=== PATIENT | female | born 2000 | race Caucasian/White ===

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

== ENCOUNTER 2020-12-06 04:34 | Outpatient (CLI) | payer MEDICAID, SELFPAY ==
[2020-12-06 13:19] LABS: Anion Gap 7.4 mmol/L (3-11); BUN 11 mg/dL (7-18); CO2 26.6 mmol/L (21.0-32.0); CREATININE 0.7 mg/dL (0.55-1.02); Calcium 9.7 mg/dL (8.5-10.1); Calculated LDL 116 mg/dL (<100); Chloride 106 mmol/L (98-107); Cholesterol 202 mg/dL (<200); Glucose 79 mg/dL (74-106); HDL Cholesterol 74 mg/dL (40-60); Potassium 4.1 mmol/L (3.5-5.1); Sodium 140 mmol/L (136-145); Triglyceride 63 mg/dL (<150)
== END 2020-12-06 04:35 | disposition home or self-care (01) ==
LOC: LBO 04:34
PROVIDERS: PCP Nurse Practitioner Family; Visit Provider Nurse Practitioner Family
DX: Z13.220 Encounter for screening for lipoid disorders (principal); Z00.00 Encounter for general adult medical examination without abnormal findings
CPT/HCPCS: 36415; 80048; 80061

== ENCOUNTER 2023-03-10 15:39 | Outpatient (REF) | payer MEDICAID, SELFPAY ==
[2023-03-12 15:36] LABS: Chlamydia Result Negative (Negative); GC Result Negative (Negative)
== END 2023-03-10 15:40 | disposition home or self-care (01) ==
LOC: LBN 15:39
PROVIDERS: PCP Nurse Practitioner Family; Visit Provider Nurse Practitioner Women's Health
DX: Z11.3 Encounter for screening for infections with a predominantly sexual mode of transmission (principal)
CPT/HCPCS: 87491; 87591

== ENCOUNTER 2023-03-14 00:26 | Outpatient (CLI) | payer MEDICAID, SELFPAY ==
--- NOTE | 2023-03-14 07:45 | DI.MRI_ITS ---
Exam(s) MR LOWER JOINT LT WO EXAM: MR LOWER JOINT LT WO CLINICAL HISTORY: left knee pain, concern for ACL/meniscus tear,M25.562. TECHNIQUE: Multiplanar multisequence MRI was performed. COMPARISON: CR LEFT KNEE 3 VIEW COMPLETE from 04/06/2013 FINDINGS: BONES: There is no fracture or contusion pattern. JOINTS: Articular cartilage is unremarkable. No effusion is present. TENDONS: Extensor mechanism: Unremarkable. Medial retinaculum: Unremarkable. Lateral retinaculum: Unremarkable. Popliteus: Unremarkable. MUSCLES: Unremarkable. MENISCI: The medial meniscus is unremarkable. The lateral meniscus is unremarkable. SOFT TISSUES: Unremarkable. LIGAMENTS: Anterior Cruciate: Unremarkable. Posterior Cruciate: Unremarkable. Medial Collateral:Unremarkable. Lateral Collateral: Unremarkable. OTHER: IMPRESSION: 1. No evidence of a meniscal or ligament tear. 2. No acute abnormality. DATA REPOSITORY:
== END 2023-03-14 00:46 ==
LOC: DI 00:26
PROVIDERS: PCP Nurse Practitioner Family; Visit Provider Nurse Practitioner Family
DX: M25.562 Pain in left knee (principal)
CPT/HCPCS: 73721

== ENCOUNTER 2023-03-24 01:29 | Outpatient (CLI) | payer MEDICAID, SELFPAY ==
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
== END 2023-03-24 01:49 ==
LOC: DI 01:30
PROVIDERS: PCP Nurse Practitioner Family; Visit Provider Nurse Practitioner Women's Health
DX: N94.10 Unspecified dyspareunia (principal); N85.8 Other specified noninflammatory disorders of uterus
CPT/HCPCS: 76830; 76856

== ENCOUNTER 2023-04-28 04:54 | Outpatient (CLI) | payer MEDICAID, SELFPAY ==
[2023-04-28 16:46] LABS: Abs Immature Grans 0.02 10^3/uL (0.0-0.06); Absolute Basophil Count 0.04 10^3/uL (0.0-0.2); Absolute Eosinophil Count 0.17 10^3/uL (0.0-0.7); Absolute Lymphocyte Count 2.73 10^3/uL (1.2-3.4); Absolute Monocyte Count 0.64 10^3/uL (0.1-0.8); Absolute Neutrophil Count 4.64 10^3/uL (1.2-6.7); Basophils % 0.5; Eosinophils % 2.1; HCT 40.1 % (36.0-46.0); HGB 13.2 g/dL (11.2-15.7); Immature Grans % 0.2; Lymphocytes % 33.1; MCH 26.6 pg (27.0-33.0); MCHC 32.9 % (32.0-36.0); MCV 81 fL (80-95); MPV 10.2 fL (8.0-11.0); Monocytes % 7.8; Neutrophils % 56.3; Platelet Count 337 10^3/uL (130-400); RBC 4.96 10^6/uL (3.93-5.22); RDW 13.2 % (11.7-14.6); RDW-SD 38.7 fL; WBC 8.24 10^3/uL (4.4-10.8)
[2023-04-28 17:48] LABS: Hemoglobin A1C 5.2 % (<5.7)
[2023-04-28 18:01] LABS: ALT 44 U/L (14-59); AST 19 U/L (15-37); Albumin 3.8 g/dL (3.4-5.0); Alkaline Phosphatase 133 U/L (46-116); Anion Gap 10.9 mmol/L (3-11); BUN 9 mg/dL (7-18); Bilirubin, Total 0.2 mg/dL (0.2-1.0); CO2 26.1 mmol/L (21.0-32.0); CREATININE 0.8 mg/dL (0.55-1.02); Calcium 9.2 mg/dL (8.5-10.1); Calculated LDL 116 mg/dL (<100); Chloride 103 mmol/L (98-107); Cholesterol 207 mg/dL (<200); Estimated GFR 106.77 (mL/min/1.73m2); Glucose 95 mg/dL (74-106); HDL Cholesterol 62 mg/dL (40-60); Sodium 140 mmol/L (136-145); TSH (W/Ref FT4) 1.37 uIU/mL (0.36-3.74); Total Protein 7.6 g/dL (6.4-8.2); Triglyceride 148 mg/dL (<150)
== END 2023-04-28 04:55 | disposition home or self-care (01) ==
PROVIDERS: PCP Nurse Practitioner Family; Visit Provider Nurse Practitioner Family
DX: E78.5 Hyperlipidemia, unspecified (principal); R79.89 Other specified abnormal findings of blood chemistry; N94.19 Other specified dyspareunia; E66.01 Morbid (severe) obesity due to excess calories; Z00.00 Encounter for general adult medical examination without abnormal findings
CPT/HCPCS: 36415; 80053; 80061; 83036; 84443; 85025

== ENCOUNTER 2023-05-13 20:24 | Outpatient (REF) | payer MEDICAID, SELFPAY ==
[2023-05-19 14:12] LABS: Helicobacter pylori Ag, Feces Negative (Negative)
== END 2023-05-13 20:25 | disposition home or self-care (01) ==
LOC: LBN 20:24
PROVIDERS: PCP Nurse Practitioner Family; Visit Provider Nurse Practitioner Family
DX: E66.01 Morbid (severe) obesity due to excess calories (principal); Z68.42 Body mass index [BMI] 45.0-49.9, adult
CPT/HCPCS: 87338

== ENCOUNTER → 2023-08-05 01:03 | Outpatient (CLI) | payer MEDICAID, SELFPAY ==
--- NOTE | 2023-08-05 07:00 | DI.MRI_ITS ---
Exam(s) MR BRAIN WO EXAM: MR BRAIN WO CLINICAL HISTORY: chronic headache, optic nerve concern per eye doctor, R51.9, G89.29 TECHNIQUE: Multiplanar multisequence MRI of the brain was performed. CT CT BRAIN NECK CTA from 08/12/2019 FINDINGS: VENTRICLES AND EXTRA AXIAL SPACES: Normal in size and morphology for the patient's age. MIDLINE SHIFT: None. CEREBRAL PARENCHYMA: No focus of restricted diffusion to suggest acute infarct. No space-occupying le radha identified. HEMORRHAGE: None. BRAINSTEM/CEREBELLUM: Normal. CALVARIUM: Normal. VISUALIZED PARANASAL SINUSES/MASTOIDS:Clear. NOME OF DIAMOND: Normal flow void. PITUITARY GLAND: Unremarkable. OTHER FINDINGS: None. IMPRESSION: Unremarkable MRI of the brain. DATA REPOSITORY:
== END ==
PROVIDERS: PCP Nurse Practitioner Family; Visit Provider Nurse Practitioner Family
DX: G89.29 Other chronic pain (principal); R51.9 Headache, unspecified
CPT/HCPCS: 70551

== ENCOUNTER 2023-12-16 15:45 | Outpatient (REF) | payer MEDICAID, SELFPAY ==
[2023-12-18 14:54] LABS: Chlamydia Result Negative (Negative); GC Result Negative (Negative)
== END 2023-12-16 15:46 | disposition home or self-care (01) ==
LOC: LBN 15:45
PROVIDERS: PCP Nurse Practitioner Family; Visit Provider Advanced Practice Midwife
DX: N89.8 Other specified noninflammatory disorders of vagina (principal); Z11.3 Encounter for screening for infections with a predominantly sexual mode of transmission
CPT/HCPCS: 87491; 87591; 87480; 87510; 87660

== ENCOUNTER 2023-12-24 05:07 | Outpatient (CLI) | payer MEDICAID, SELFPAY ==
[2023-12-24 18:24] LABS: Hepatitis B Surface Ag Negative (Negative)
[2023-12-24 18:53] LABS: Hepatitis C Ab w Rflx HCV PCR Negative (Negative)
[2023-12-24 18:54] LABS: HIV-1/2 Ag & Ab Screen Negative (Negative)
[2023-12-26 19:19] LABS: Syphilis IgG w/Reflex Nonreactive (Nonreactive)
== END 2023-12-24 05:08 | disposition home or self-care (01) ==
PROVIDERS: PCP Nurse Practitioner Family; Visit Provider Advanced Practice Midwife
DX: Z34.91 Encounter for supervision of normal pregnancy, unspecified, first trimester (principal); Z11.3 Encounter for screening for infections with a predominantly sexual mode of transmission
CPT/HCPCS: 36415; 86803; 87340; 87389; 86780

== ENCOUNTER 2024-01-09 09:40 | Outpatient (CLI) | payer MEDICAID, SELFPAY ==
[2024-01-09 12:22] LABS: Abs Immature Grans 0.02 10^3/uL (0.0-0.06); Absolute Basophil Count 0.04 10^3/uL (0.0-0.2); Absolute Lymphocyte Count 1.12 10^3/uL (1.2-3.4); Absolute Monocyte Count 0.52 10^3/uL (0.1-0.8); Absolute Neutrophil Count 5.38 10^3/uL (1.2-6.7); Basophils % 0.6; Eosinophils % 1.4; HCT 42.5 % (36.0-46.0); HGB 13.8 g/dL (11.2-15.7); Immature Grans % 0.3; Lymphocytes % 15.6; MCHC 32.5 % (32.0-36.0); MCV 86 fL (80-95); MPV 11.6 fL (8.0-11.0); Monocytes % 7.2; Neutrophils % 74.9; Platelet Count 293 10^3/uL (130-400); RBC 4.93 10^6/uL (3.93-5.22); RDW 14.6 % (11.7-14.6); RDW-SD 46.5 fL; WBC 7.18 10^3/uL (4.4-10.8)
[2024-01-09 12:49] LABS: ALT 82 U/L (14-59); AST 37 U/L (15-37); Albumin 3.9 g/dL (3.4-5.0); Alkaline Phosphatase 111 U/L (46-116); Anion Gap 12.2 mmol/L (3-11); BUN 12 mg/dL (7-18); Bilirubin, Total 0.6 mg/dL (0.2-1.0); CO2 25.8 mmol/L (21.0-32.0); Calcium 9.5 mg/dL (8.5-10.1); Chloride 106 mmol/L (98-107); Estimated GFR 81.18 (mL/min/1.73m2); Glucose 85 mg/dL (74-106); Potassium 4.1 mmol/L (3.5-5.1); Sodium 144 mmol/L (136-145); TSH (W/Ref FT4) 1.54 uIU/mL (0.36-3.74); Total Protein 8.1 g/dL (6.4-8.2)
== END 2024-01-09 09:41 | disposition home or self-care (01) ==
LOC: LOS 09:40
PROVIDERS: PCP Nurse Practitioner Family; Referring Provider Nurse Practitioner Family; Visit Provider Nurse Practitioner Family
DX: R42 Dizziness and giddiness (principal)
CPT/HCPCS: 36415; 80053; 84443; 85025

== ENCOUNTER 2024-02-25 08:02 | Outpatient (REF) | payer MEDICAID, SELFPAY ==
--- NOTE | 2024-02-25 07:20 | PAPFT_PTH ---
PATIENT: Althea House LOC: RODOLFOAngelica U#:[id number] AGE/SX: 23/F ROOM: RE02/25/[address]: MERRICK Gonzalez : 2000 BED: DIS: 02/25/2024 SPEC #: [id number] RECD: 02/25/24 13:14 STATUS: FERNANDO REStephania #: [id number] ALYSE: 02/25/24 07:[address]: Lizzy Walters DEPT: [facility] Cytology RECD BY: Bing Betts Tissues: 1 - CX/ENDOCX FOR PAP SMEARS Procedures: PAP THIN PREP/[facility] Screening Comments: [id number] (CHLAMYDIA/GC)
[2024-02-26 14:53] LABS: Chlamydia Result Negative (Negative); GC Result Negative (Negative)
== END 2024-02-25 08:03 | disposition home or self-care (01) ==
LOC: LBN 08:02
PROVIDERS: PCP Nurse Practitioner Family; Visit Provider Nurse Practitioner Family
DX: Z11.3 Encounter for screening for infections with a predominantly sexual mode of transmission (principal); Z12.4 Encounter for screening for malignant neoplasm of cervix
CPT/HCPCS: 87491; 87591; 88142; 87624

== ENCOUNTER 2024-09-10 00:31 | Outpatient (CLI) | payer MEDICAID, SELFPAY ==
--- NOTE | 2024-09-10 06:30 | DI.US_ITS ---
Exam(s) US PELVIS TRANSVAGINAL EXAM: US PELVIS TRANSVAGINAL CLINICAL HISTORY: Check IUD,BREAKTHROUGH BLEEDING,N92.1,Z97.5. TECHNIQUE: Transabdominal and transvaginal pelvic ultrasound was performed using standard protocol. COMPARISON: US US PELVIS TRANSVAGINAL from 03/24/2023 FINDINGS: UTERUS: Position: Anteverted. Size: 6.2 long by 2.8 AP by 3.3 transverse cm Endometrium: 0.2 cm. Normal for patient's menstrual status. The patient has an IUD. The IUD appears slightly low in location. It is 5 mm from the edge of the fundal endometrium. Myometrium: There is again seen a 5 mm echogenic nodule adjacent to the edge of the endometrium in th e fundus. This is unchanged. No suspicious myometrial masses are seen. Cervix: Unremarkable. OVARIES: Right: 3.3 x 2.4 x 1.2 cm Cyst or mass: No suspicious cystic or solid masses. Left: 2.6 x 1.8 x 1.8 cm Cyst or mass: No suspicious cystic or solid masses. DOPPLER: Color: Symmetric and uniform flow to both ovaries. CUL-DE-SAC: Free fluid: None. Other: None. IMPRESSION: 1. Normal-appearing uterus with endometrial stripe within normal limits. 2. The IUD appears slightly lower in position. It is approximately 5 mm from the into the fundal end ometrium. 3. Unremarkable bilateral ovaries. DATA REPOSITORY:
== END 2024-09-10 00:51 ==
LOC: DI 00:31
PROVIDERS: PCP Nurse Practitioner Family; Visit Provider Obstetrics & Gynecology
DX: N92.1 Excessive and frequent menstruation with irregular cycle (principal); Z97.5 Presence of (intrauterine) contraceptive device
CPT/HCPCS: 76830; 76856

== ENCOUNTER 2024-12-17 15:54 | Outpatient (REF) | payer MEDICAID, SELFPAY | END 2024-12-17 15:55 | disposition home or self-care (01) | LOC: LBN 15:54 | PROVIDERS: PCP Nurse Practitioner Family; Visit Provider Advanced Practice Midwife | DX: N89.8 Other specified noninflammatory disorders of vagina (principal); Z30.431 Encounter for routine checking of intrauterine contraceptive device; N92.1 Excessive and frequent menstruation with irregular cycle; Z97.5 Presence of (intrauterine) contraceptive device | CPT/HCPCS: 87480; 87510; 87660 ==

== ENCOUNTER 2025-04-25 02:01 | Outpatient (CLI) | payer MEDICAID, SELFPAY ==
[2025-04-25 12:38] LABS: Abs Immature Grans 0.02 10^3/uL (0.0-0.06); HCT 37.5 % (36.0-46.0); HGB 12.6 g/dL (11.2-15.7); Immature Grans % 0.3 %; MCH 28.4 pg (27.0-33.0); MCHC 33.6 % (32.0-36.0); MCV 85 fL (80-95); MPV 10.5 fL (8.0-11.0); Platelet Count 222 10^3/uL (130-400); RBC 4.44 10^6/uL (3.93-5.22); RDW 12.4 % (11.7-14.6); RDW-SD 38.0 fL; WBC 6.93 10^3/uL (4.4-10.8)
[2025-04-25 13:28] LABS: ALT 23 U/L (14-59); AST 16 U/L (15-37); Albumin 3.4 g/dL (3.4-5.0); Alkaline Phosphatase 99 U/L (46-116); Anion Gap 8.5 mmol/L (3-11); BUN 6 mg/dL (7-18); Bilirubin, Total 0.4 mg/dL (0.2-1.0); CO2 25.5 mmol/L (21.0-32.0); Calcium 8.8 mg/dL (8.5-10.1); Chloride 101 mmol/L (98-107); Estimated GFR 128.46 (mL/min/1.73m2); Glucose 72 mg/dL (74-106); Potassium 3.8 mmol/L (3.5-5.1); Sodium 135 mmol/L (136-145); Total Protein 7.3 g/dL (6.4-8.2)
[2025-04-25 14:38] LABS: Hemoglobin A1C 4.6 % (<5.7)
[2025-04-26 09:48] LABS: HIV-1/2 Ag & Ab Screen Negative (Negative)
[2025-04-26 09:55] LABS: Hepatitis C Ab w Rflx HCV PCR Negative (Negative)
[2025-04-26 11:13] LABS: Rubella IgG Ab (UVM) Negative (See Note)
[2025-04-28 16:23] LABS: Syphilis IgG w/Reflex Nonreactive (Nonreactive)
== END 2025-04-25 02:02 | disposition home or self-care (01) ==
LOC: LBO 02:01
PROVIDERS: PCP Nurse Practitioner Family; Visit Provider Advanced Practice Midwife
DX: Z34.91 Encounter for supervision of normal pregnancy, unspecified, first trimester (principal)
CPT/HCPCS: 36415; 80053; 81220; 81222; 86787; 86803; 86850; 86900; 86901; 87340; 87389; 83036; 85025; 86762; 86780

== ENCOUNTER 2025-04-25 15:05 | Outpatient (REF) | payer MEDICAID, SELFPAY ==
[2025-04-25 16:41] LABS: Cannabinoids THC Negative (Negative); METHADONE URINE SCREEN Negative (Negative)
[2025-04-26 11:17] LABS: Fentanyl Scr w/Rfx Confirm Negative ng/mL (<1)
[2025-04-26 11:25] LABS: Chlamydia Result Negative (Negative); GC Result Negative (Negative)
== END 2025-04-25 15:06 | disposition home or self-care (01) ==
LOC: LBN 15:05
PROVIDERS: PCP Nurse Practitioner Family; Visit Provider Advanced Practice Midwife
DX: Z34.91 Encounter for supervision of normal pregnancy, unspecified, first trimester (principal); Z3A.11 11 weeks gestation of pregnancy; R82.89 Other abnormal findings on cytological and histological examination of urine
CPT/HCPCS: 80307; 80348; 87491; 87591; 87086

== ENCOUNTER 2025-06-21 03:32 | Outpatient (CLI) | payer MEDICAID, SELFPAY ==
--- NOTE | 2025-06-21 05:30 | DI.US_ITS ---
Exam(s) US OB 2-3 TRIMESTER EXAM: US OB 2-3 TRIMESTER CLINICAL HISTORY: ,z34.90. TECHNIQUE: Transabdominal obstetrical ultrasound performed. COMPARISON: US US PELVIS TRANSVAGINAL from 09/10/2024 FINDINGS: Number of fetuses: 1 position: VARIED heart rate: 140bpm Placental location: There is a grade 1 posterior placenta. The placental tip is 1.9 cm from the internal os. No evidence of previa. Amniotic fluid index: Amount of fluid is within normal limits. ANATOMICAL SURVEY: Within normal limits. BIOMETRIC DATA: BPD: 4.64cm, 20weeks HC: 17.11cm, 19weeks 5days AC: 14.58cm, 19weeks 6days FL: 3.13cm, 19weeks 5days Cisterna magna: 3.7mm Cerebellum: 1.94cm Lateral ventricle: 0.5 cm. EFW: 314.07g, 0.7lb, 68% Composite Age: 19weeks 6days REVA: 11/09/2025 Heart Rate: 140bpm ANATOMICAL SURVEY: Four-chambered heart: Unremarkable. RVOT: Unremarkable. LVOT: Unremarkable. Left-sided stomach: Unremarkable. urinary bladder: Unremarkable. Bilateral kidneys: Unremarkable. Three-vessel cord: Unremarkable. Cord insertion: Unremarkable. Posterior fossa: Unremarkable. ventricles: Unremarkable. nose/lips: Unremarkable. Palate: Unremarkable. spine: Unremarkable. Two arms and two legs: Unremarkable. IMPRESSION: 1. Single live intrauterine gestation as above. 2. There is a low-lying placenta. The placental tip is less than 2 cm from the internal os. 3. Normal anatomic survey. DATA REPOSITORY:
== END 2025-06-21 03:52 ==
LOC: DI 03:32
PROVIDERS: PCP Nurse Practitioner Family; Visit Provider Advanced Practice Midwife
DX: Z34.92 Encounter for supervision of normal pregnancy, unspecified, second trimester (principal)
CPT/HCPCS: 76805

== ENCOUNTER 2025-07-05 20:42 | Outpatient (REF) | payer MEDICAID, SELFPAY | END 2025-07-05 20:43 | disposition home or self-care (01) | LOC: LBN 20:42 | PROVIDERS: PCP Nurse Practitioner Family; Visit Provider Nurse Practitioner Family | DX: J02.9 Acute pharyngitis, unspecified (principal) | CPT/HCPCS: 87070 ==

== ENCOUNTER 2025-08-30 14:58 | Outpatient (REF) | payer MEDICAID, SELFPAY ==
[2025-08-30 16:40] LABS: Cannabinoids THC Negative (Negative); Fentanyl Scr w/Rflx to Conf, U Negative (Negative)
== END 2025-08-30 14:59 | disposition home or self-care (01) ==
LOC: LBN 14:58
PROVIDERS: PCP Nurse Practitioner Family; Visit Provider Advanced Practice Midwife
DX: Z34.93 Encounter for supervision of normal pregnancy, unspecified, third trimester (principal)
CPT/HCPCS: 80307; 80348

== ENCOUNTER → 2025-09-15 01:01 | Outpatient (CLI) | payer MEDICAID, SELFPAY ==
--- NOTE | 2025-09-15 07:50 | DI.US_ITS ---
Exam(s) US OB ASHLEY WEIGHT EXAM: US OB ASHLEY WEIGHT CLINICAL HISTORY: growth,ashley,low lying placenta,O44.42. TECHNIQUE: Transabdominal obstetrical ultrasound performed. COMPARISON: US US OB 2-3 TRIMESTER from 06/21/2025 FINDINGS:: Number of fetuses: 1 position: CEPHALIC Placental location: POSTERIOR . The tip of the placenta to the internal os measures 7.4 cm. BIOMETRIC DATA: BPD: 7.89cm mm = 31weeks 5days HC: 28.62cm mm = 31weeks 3days AC: 27.11cm mm = 31weeks 1day FL: 6.08cm mm = 31weeks 4days EFW: 1,755.46g, 3lb 14.16oz, 28.2% Composite Age: 31weeks 3days REVA: 11/14/2025 Heart Rate: 141bpm Amniotic fluid index: 15.9cm. Visually, amount of fluid is within normal limits. IMPRESSION: size and weight are within the expected range. Placenta is no longer low lying. Normal ASHLEY. DATA REPOSITORY:
== END ==
PROVIDERS: PCP Nurse Practitioner Family; Visit Provider Advanced Practice Midwife
DX: O44.42 Low lying placenta NOS or without hemorrhage, second trimester (principal); Z98.84 Bariatric surgery status
CPT/HCPCS: 76816

== ENCOUNTER 2025-10-04 15:57 | Outpatient (REF) | payer MEDICAID, SELFPAY | END 2025-10-04 15:58 | disposition home or self-care (01) | LOC: LBN 15:57 | PROVIDERS: PCP Nurse Practitioner Family; Visit Provider Nurse Practitioner Obstetrics & Gynecology | DX: R10.9 Unspecified abdominal pain (principal); O26.893 Other specified pregnancy related conditions, third trimester; M54.50 Low back pain, unspecified | CPT/HCPCS: 87077; 87086; 87186 ==